=== PATIENT | male | born 1945 | race Caucasian/White ===

== ENCOUNTER → 2020-12-11 | Outpatient (CLI) | payer OTHER ==
[~2020-12-11] MED LIST: ASPIRIN EC325 MG PO; ASPIRIN EC81 MG PO; BETAPACE 80MG T80 MG PO; ELIQUIS5 MG PO; HYDROCHLOROTH12.5 M1 PO; HYDROCHLOROTHIA25 MG PO; LEVAQUIN500 MG PO; LISINOPRIL10 MG PO; LOPRESSOR 25 MG25 MG PO; METHYLPREDNISOLO4 M1 PO; VITAMIN D 11000 UNIT PO; WARFARIN SODIUM5 MG PO; ZESTRIL40 MG PO; ZITHROMAX250 MG PO; ZOCOR20 MG PO
[2020-12-11 12:16] LABS: BUN/CREATININE RATIO 15 (0-10)
== END ==
LOC: LAB 10:31
PROVIDERS: Family Medicine
DX: E55.9 Vitamin D deficiency, unspecified (principal); E78.5 Hyperlipidemia, unspecified; I10 Essential (primary) hypertension
CPT/HCPCS: 36415; 80053; 80061

== ENCOUNTER → 2021-01-16 | Outpatient (CLI) | payer OTHER | LOC: KOH-I 01-05 14:30 | DX: I71.2 Thoracic aortic aneurysm, without rupture (principal); R91.8 Other nonspecific abnormal finding of lung field | CPT/HCPCS: 71250 ==

== ENCOUNTER → 2021-02-12 | Outpatient (CLI) | payer OTHER | LOC: CT 10:43 | DX: N28.89 Other specified disorders of kidney and ureter (principal) | CPT/HCPCS: 36415; 82565; 84520; Q9965 ==

== ENCOUNTER → 2021-06-08 | Outpatient (CLI) | payer OTHER ==
[2021-06-08 10:32] LABS: HEMOGLOBIN 15.7 gm/dl (14.0-17.5); RED BLOOD COUNT 5.01 M/UL (4.20-5.50); WHITE BLOOD COUNT 5.1 K/UL (4.5-11.0)
[2021-06-08 10:58] LABS: BUN/CREATININE RATIO 15 (0-10)
== END ==
LOC: LAB 10:01
PROVIDERS: Family Medicine
DX: Z12.5 Encounter for screening for malignant neoplasm of prostate (principal); E78.5 Hyperlipidemia, unspecified; E55.9 Vitamin D deficiency, unspecified; I10 Essential (primary) hypertension
CPT/HCPCS: 36415; 80053; 80061; 85027; G0103

== ENCOUNTER → 2021-08-25 | Outpatient (CLI) | payer OTHER | LOC: CT 07-21 08:30 → ECHO 07-21 08:30 → US 07-21 08:30 → CT 07-21 09:30 → ECHO 08:47 → US 10:00 → CT 10:30 | DX: I71.2 Thoracic aortic aneurysm, without rupture (principal); I71.4 Abdominal aortic aneurysm, without rupture | CPT/HCPCS: ECHO; 36415; 71275; 82565; 93306; 93979; Q9967 ==

== ENCOUNTER → 2021-09-21 | Outpatient (CLI) | payer MEDICARE ==
[2021-09-22 08:13] LABS: VITAMIN D, 25-HYDROXY 33.4 ng/mL (30.0-100.0)
[2021-09-22 09:13] LABS: A/G RATIO 1.6 (1.2-2.2); ALKALINE PHOSPHATASE, S 63 IU/L (44-121); ALT (SGPT) 18 IU/L (0-44); AST (SGOT) 21 IU/L (0-40); BILIRUBIN, TOTAL 0.6 mg/dL (0.0-1.2); BUN 12 mg/dL (8-27); BUN/CREATININE RATIO 16 (10-24); CALCIUM, SERUM 9.6 mg/dL (8.6-10.2); CARBON DIOXIDE, TOTAL 23 mmol/L (20-29); CHLORIDE, SERUM 105 mmol/L (96-106); CHOLESTEROL, TOTAL 120 mg/dL (100-199); CREATININE, SERUM 0.73 mg/dL (0.76-1.27); EGFR IF AFRICN AM 103 (>59); EGFR IF NONAFRICN AM 89 (>59); GLOBULIN, TOTAL 2.5 g/dL (1.5-4.5); GLUCOSE, SERUM 95 mg/dL (65-99); HDL CHOLESTEROL 37 mg/dL (>39); LDL CHOLESTEROL CALC 63 mg/dL (0-99); LDL/HDL RATIO 1.7 ratio (0.0-3.6); POTASSIUM, SERUM 4.2 mmol/L (3.5-5.2); PROTEIN, TOTAL, SERUM 6.6 g/dL (6.0-8.5); SODIUM, SERUM 140 mmol/L (134-144); T. CHOL/HDL RATIO 3.2 ratio (0.0-5.0); TRIGLYCERIDES 106 mg/dL (0-149)
== END ==
LOC: LAB 11:47
PROVIDERS: Family Medicine
DX: E55.9 Vitamin D deficiency, unspecified (principal); E78.5 Hyperlipidemia, unspecified; I10 Essential (primary) hypertension
CPT/HCPCS: 36415; 80053; 80061

== ENCOUNTER → 2022-03-02 | Outpatient (CLI) | payer MEDICARE | LOC: CT 09:30 | DX: N28.1 Cyst of kidney, acquired (principal); R31.9 Hematuria, unspecified; R10.9 Unspecified abdominal pain; Z98.890 Other specified postprocedural states | CPT/HCPCS: 36415; 82565; 84520; Q9967 ==